=== PATIENT | female | born 1960 | race Caucasian/White ===

== ENCOUNTER 2016-12-07 13:52 | Emergency (ER) | payer BC ==
[2016-12-07 14:03] VITALS: BP 125/72
[2016-12-07] MEDS ORDERED: Ketorolac INJ* 30 MG/ML 1 ML VIAL IM ONE (14:39)
--- NOTE | 2016-12-07 14:43 | UC ---
Knee Pain HPI - HPI Summary HPI Summary: 56 yo female twisted left knee heard a pop immediate swelling and pain unable to bear wt - History of Current Complaint Chief Complaint: UCLowerExtremity Stated Complaint: LEFT KNEE INJURY Time Seen by Provider: 12/07/16 14:32 Hx Obtained From: Patient Onset/Duration: Sudden Onset, Lasting Hours Severity Initially: Mild - unless she moves Location Of Injury: left knee Pain Intensity: 4 Pain Scale Used: 0-10 Numeric Character: Dull, Aching Alleviating Factor(s): Rest Associated Signs And Symptoms: Positive: Swelling Able to Bear Weight: No - Allergies/Home Medications Allergies/Adverse Reactions: Allergies Allergy/AdvReac Type Severity Reaction Status Date / Time Chlorpheniramine Allergy Severe Hives Verified 12/07/16 14:03 [From [facility]] Phenylephrine [From [facility]] Allergy Severe Hives Verified 12/07/16 14:03 Phenylpropanolamine Allergy Severe Hives Verified 12/07/16 14:03 [From [facility]] Phenyltoloxamine Allergy Severe Hives Verified 12/07/16 14:03 [From [facility]] Sulfa Drugs Allergy Severe Hives Verified 12/07/16 14:03 PMH/Surg Hx/FS Hx/Imm Hx Previously Healthy: Yes - Surgical History Surgical History: Yes Surgery Procedure, Year, and Place: fibroid tumor removal - Family History Known Family History: Positive: Hypertension, Diabetes Negative: Cardiac Disease - Social History Alcohol Use: Weekly Substance Use Type: None Smoking Status (MU): Never Smoked Tobacco Review of Systems Constitutional: Negative Skin: Negative Eyes: Negative ENT: Negative Respiratory: Negative Cardiovascular: Negative Gastrointestinal: Negative Genitourinary: Negative Motor: Negative Neurovascular: Negative Musculoskeletal: Arthralgia Neurological: Negative Psychological: Negative All Other Systems Reviewed And Are Negative: Yes Physical Exam Triage Information Reviewed: Yes Appearance: Well-Appearing, No Pain Distress, Well-Nourished Vital Signs: Initial Vital Signs Temp 97.6 F 12/07/16 13:56 Pulse 85 12/07/16 13:56 Resp 14 12/07/16 13:56 BP 125/72 12/07/16 13:56 Pulse Ox 100 12/07/16 13:56 Vital Signs Reviewed: Yes Eyes: Positive: Conjunctiva Clear ENT: Positive: Normal ENT inspection, Hearing grossly normal, Pharynx normal, Tonsillar exudate. Negative: Nasal congestion, Nasal drainage, Trismus, Muffled /hoarse voice Neck: Positive: Supple, Nontender, No Lymphadenopathy Respiratory: Positive: Lungs clear, Normal breath sounds, No respiratory distress Musculoskeletal Exam: Other Neurological: Positive: Alert Psychological Exam: Normal Skin Exam: Normal Knee Pain Course/Dx - Differential Dx/Diagnosis Provider Diagnoses: depressed left lateral tibial plateau fracture Discharge - Discharge Plan Condition: Stable Disposition: HOME Prescriptions: HYDROcodone/ACETAMIN 5-325 MG* [[place] 5-325 TAB*] 1 tab PO Q4H PRN #15 tab MDD 6 PRN Reason: Pain Ibuprofen TAB* [Motrin TAB*] 600 mg PO QID PRN #40 tab PRN Reason: Pain Patient Education Materials: Leg Fracture (ED) Referrals: Buzz Sutherland MD [Medical Doctor] - Additional Instructions: You have a left LATERAL TIBIAL PLATEAU FRACTURE rest elevate ice motrin norco for severe pain knee immobilizer crutches with non wt bearing call Dr. Sutherland's office Friday to make an appt she wants to see you on Friday Images Front/Back of Body, Lg ([place]): 1 - large effusion/globally tender. guarding
[2016-12-07] MEDS ORDERED: HYDROcodone/ACETAMIN 5-325 MG* 1 TAB PO ONE (15:11)
--- NOTE | 2016-12-07 15:23 | RAD ---
INDICATION: Left knee injury. TECHNIQUE: 4 views of the left knee were obtained. FINDINGS: There is a large joint effusion present. There is a slightly depressed fracture of the lateral tibial plateau. No other fractures are seen. IMPRESSION: DEPRESSED FRACTURE OF THE LATERAL TIBIAL PLATEAU.
== END 2016-12-07 15:51 | disposition home or self-care (01) ==
LOC: UCCORT 13:52
DX: S82.142A Displaced bicondylar fracture of left tibia, initial encounter for closed fracture (principal); X50.1XXA Overexertion from prolonged static or awkward postures, initial encounter; Y92.9 Unspecified place or not applicable; Z88.2 Allergy status to sulfonamides; M25.462 Effusion, left knee
CPT/HCPCS: 96372; 99213; G0463; J1885